=== PATIENT | female | born 1950 | race Asian ===

== ENCOUNTER 2019-02-19 09:03 | Outpatient (CLI) | payer MEDICARE, OTHER ==
[2019-02-19 12:31] LABS: BUN - BLOOD UREA NITROGEN 20 mg/dL (6-20); CALCIUM 9.6 mg/dL (8.5-10.3); CARBON DIOXIDE - CO2 24 mmol/L (21-32); CHLORIDE 108 mmol/L (101-111); CHOL/HDL RATIO 2.8 (<4.4); CHOLESTEROL 174 mg/dL; CREATININE 0.7 mg/dL (0.4-1.0); GFR - MDRD 83 (>89); GLUCOSE 120 mg/dL (70-100); HDL CHOLESTEROL 62 mg/dL; LDL CHOLESTEROL,CALCULATED 92 mg/dL; LDL/HDL RATIO 1.5 (<4.4); SODIUM 141 mmol/L (135-145); VLDL CHOLESTEROL 20 mg/dL
[2019-02-19 13:01] LABS: HB2 TOTAL 14.2 g/dL; HEMOGLOBIN A1C 0.56 g/dL; HEMOGLOBIN A1C % 5.8 % (4.6-6.2)
[2019-02-19 13:15] LABS: CREATININE,URINE 146.7 mg/dL; MICROALBUM/CREATININE RATIO,UR 1210.6 ug/mg (<30.0); MICROALBUMIN,URINE 177.6 mg/dL (0-300.0)
== END 2019-02-19 23:59 | disposition home or self-care (01) ==
LOC: LAB.N 09:03
PROVIDERS: ATTEND Family Medicine
DX: E11.9 Type 2 diabetes mellitus without complications (principal); E78.5 Hyperlipidemia, unspecified; I10 Essential (primary) hypertension
CPT/HCPCS: 36415; 80048; 80061; 82043; 82570; 83036; 83721; 84443

== ENCOUNTER 2019-03-02 12:25 | Outpatient (CLI) | payer MEDICARE, OTHER ==
--- NOTE | 2019-03-15 09:10 | Mammography Report ---
Reason: ROUTINE MAMMO Procedure Date: 03/02/2019 Accession Number: [id number] / [id number] Procedure: MGN - Screening Mammo Dig Bilat CPT Code: Final Report FULL RESULT: EXAM: Screening Mammo Dig Bilat DATE: 03/02/2019 12:53 PM CLINICAL HISTORY: Routine screening. No reported personal or family history of breast cancer. TECHNIQUE: (B) - Bilateral CC and MLO views were obtained. COMPARISON: None. If comparison films become available, an addendum to this report will be issued. PARENCHYMAL PATTERN: (D) - The breasts demonstrate heterogeneously dense fibroglandular parenchyma bilaterally. FINDINGS: Bilateral breasts: There are no suspicious masses, calcifications, or areas of distortion. IMPRESSION: Negative examination. BI-RADS category 1. RECOMMENDATION: (ANNUAL) - Recommend routine annual screening mammography. BI-RADS CATEGORY: (1) - Negative. STANDARD QUALIFYING STATEMENTS: 1. This examination was not reviewed with the aid of Computer-Aided Detection (CAD). 2. A negative or benign imaging report should not preclude biopsy if clinically suspicious findings are present. 3. Dense breasts may obscure an underlying neoplasm. 4. This examination was reviewed without the aid of 3D breast imaging (tomosynthesis).
== END 2019-03-02 12:26 | disposition home or self-care (01) ==
LOC: DI.N 12:25
PROVIDERS: ATTEND Family Medicine
DX: Z12.31 Encounter for screening mammogram for malignant neoplasm of breast (principal)
CPT/HCPCS: 77067

== ENCOUNTER 2019-05-04 08:29 | Outpatient (CLI) | payer MEDICARE, OTHER ==
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
[2019-05-04 09:44] VITALS: BP 150/80
== END 2019-05-04 08:30 | disposition home or self-care (01) ==
LOC: SC 08:29
PROVIDERS: ATTEND Nurse Practitioner Family
DX: G47.33 Obstructive sleep apnea (adult) (pediatric) (principal)
CPT/HCPCS: 99203; G0463; 99212

== ENCOUNTER 2019-05-30 19:21 | Outpatient (CLI) | payer MEDICARE, OTHER | END 2019-05-30 19:22 | disposition home or self-care (01) | LOC: SC 19:21 | PROVIDERS: ATTEND Internal Medicine Pulmonary Disease | DX: G47.33 Obstructive sleep apnea (adult) (pediatric) (principal) | CPT/HCPCS: 95810 ==

== ENCOUNTER 2019-06-29 13:47 | Outpatient (CLI) | payer MEDICARE, OTHER ==
[2019-06-29 16:19] VITALS: BP 140/70
--- NOTE | 2019-06-29 16:19 | SLEEP CARE CONSULTATION ---
Information from patient questionnaire entered by Danni Guzman. I have reviewed and concur with the information entered by Danni Guzman. This document represents the service I personally performed and the decisions made by me, Marcia Mccormack, RN, MSN, FLAMER SEALER. History of Present Illness Initial [place] Sleepiness Scale score: 17 Current [place] Sleepiness Scale score: 17 Additional HPI information: [facility] returns for follow up and results of the recently performed polysomnography. I explained the pathophysiology behind obstructive sleep apnea. We then spent quite a bit of time discussing different treatment options. For mild obstructive sleep apnea, surgery and oral appliance are alternatives to nasal CPAP therapy but in moderate or severe cases, nasal CPAP is the most effective and reliable treatment. I reviewed the impact of weight changes on sleep apnea and strongly recommended losing some weight. After some discussion, the patient opted to go with the nasal CPAP therapy. Nasal autoCPAP set at [id number] will be ordered with rationale explained. A manual titration study will be ordered if unable to find optimal pressure with office adjustments. I explained how CPAP machine works with sample devices RespirPlayerizes Dreamstation and ResMed [id number] and what to expect when using the machine. Using CPAP every night in order to get used to it was emphasized. Patient advised to put CPAP mask on before getting into bed so as not to fall asleep without CPAP. To assist acclimation to CPAP use, it could also be used for a short time during day while reading or watching TV. The patient was instructed to call the CPAP supplier to discuss any mechanical problem that may occur. If the mask given is uncomfortable or is difficult to keep on through the night even with adjustment, contact the CPAP supplier as many will replace with another mask style if notified before 30 days. If snoring or perceives is not getting enough air or too much air from the machine, notify this office. [facility] patient education PAP tips reviewed and given to patient. Patient prefers Res Med Air Sense CPAP. Patient counseled not drink alcohol less than 4 hours before bedtime as it can increase snoring and apnea. Patient does not drink alcohol. Patient was cautioned about risks of drowsy driving until sleepiness symptoms resolve. Patient denies drowsy driving. [facility] patient education on snoring and sleep apnea given and reviewed at last visit. Sleep Study - Results Polysomnography/Home Sleep Study results: The quality of the study is good. The patient had reduced sleep efficiency due to home lending officer awakening. Despite severe sleep fragmentation, the sleep architecture was normal.. Respiratory monitoring showed severe obstructive sleep apnea-hypopnea (AHI = 55.0) associated with frequent arousals, oxyhemoglobin desaturation and moderate hypoxia (roxy oxygen saturation of 75%). The patient only slept supine during this study (supine AHI = 55.7; non- supine = 0.00). Snore was loud in intensity. There was no significant periodic leg movement of sleep. Cardiac rhythm was normal sinus rhythm without significant arrhythmia. No abnormal behavior (parasomnia) observed during the night. Allergies and Home Medications Known drug allergies: No Home medication list reviewed: Yes (no change from last visit ) Review of Systems Review of systems same as previous: No (cataract surgery pending left eye ) Physical Exam Blood Pressure: 140/70 Cuff size: regular Heart Rate: 65 O2 Saturation: 98 Height: 4 ft 10.25 in Weight: 138 lb Body Mass Index: 28.5 BMI Classification: Overweight Impression and Plan 1. 1. Obstructive Sleep Apnea-Hypopnea Syndrome, severe, with lowest oxygen saturation of 75%. Obviously this is the cause of the patients symptoms of unrefreshed sleep, and excessive daytime sleepiness. Positive pressure therapy could benefit hypertension and diabetes. As mentioned above, the patient will be started on nasal autoCPAP therapy with pressure set at 5-15 cmH2O. A manual titration study will be completed if unable to find optimal treatment pressure with office adjustments. Compliance guidelines also reviewed. A copy of compliance guidelines will be given for reference at check out. At last sleep study in 2009 her apnea was worse supine. So advised to avoid sleeping supine until she receives her CPAP. I will place an urgent set up due to apnea severity and moderate hypoxia. * Nasal auto CPAP therapy, pressure at 5-15 cm H2O. * Attempt to lose weight. * Avoid alcohol consumption near bedtime. * Avoid supine sleep until using CPAP. * The patient is again cautioned about driving until sleepiness completely resolves. * Return one month after CPAP obtained. I will assess response to therapy and compliance at that time. Time Spent with Patient (minutes): 30 I spent 100% of this visit face to face with the patient with greater than 50% of this was spent time counseling the patient and coordination of care.
== END 2019-06-29 13:48 | disposition home or self-care (01) ==
LOC: SC 13:47
PROVIDERS: ATTEND Nurse Practitioner Family
DX: G47.33 Obstructive sleep apnea (adult) (pediatric) (principal); E66.3 Overweight; Z68.28 Body mass index [BMI] 28.0-28.9, adult
CPT/HCPCS: 99214; G0463; 99212

== ENCOUNTER 2019-07-08 06:09 | Day surgery (SDC) | payer MEDICARE, OTHER ==
[2019-07-08] MEDS ORDERED: MIDAZOLAM 2 MG/2 ML VIAL IVP ONE (06:10)
[2019-07-08] MEDS ORDERED: PROPARACAINE 0.5% OPHTH DROPS 15 ML ONE (06:27)
[2019-07-08] MEDS ORDERED: PHENYLEPHRINE 2.5% OPHTH 2 ML DROPS ONE (06:27)
[2019-07-08] MEDS ORDERED: KETOROLAC 0.45% OPHTH DROPS ONE (06:27)
[2019-07-08] MEDS ORDERED: CYCLOPENTOLATE 1% OPHTH DROPS 2 ML ONE (06:27)
[2019-07-08] MEDS ORDERED: LACTATED RINGERS 500 ML IV ONE (06:30)
[2019-07-08] MEDS ORDERED: timoloL maleate 0.5% OPHTH DROPS (10ML) ONE (06:35)
[2019-07-08] MEDS ORDERED: TRIAMCIN/MOXIFLOX OPHTHALMIC 0.6 ML VIAL IO ONE ×2 (06:35→07:34)
[2019-07-08] MEDS ORDERED: BRIMONIDINE 0.2% OPHTH DROPS 5 ML ONE (06:35)
[2019-07-08] MEDS ORDERED: VANCOMYCIN OPHTHALMI 8MG/0.8ML 8 MG/0.8 ML SYRINGE IO ONE ×2 (06:36→07:35)
[2019-07-08] MEDS ORDERED: BSS/LIDOCAINE/EPINEPHRINE 1 ML SYRINGE ONE (06:36)
[2019-07-08] MEDS ORDERED: PROPARACAINE 0.5% OPHTH DROPS 15 ML LEFTEYE ONE ×2 (06:40→07:21)
[2019-07-08] MEDS ORDERED: CYCLOPENTOLATE 1% OPHTH DROPS 2 ML LEFTEYE ONE (06:40)
[2019-07-08] MEDS ORDERED: PHENYLEPHRINE 2.5% OPHTH 2 ML DROPS LEFTEYE ONE (06:40)
[2019-07-08] MEDS ORDERED: KETOROLAC 0.45% OPHTH DROPS LEFTEYE ONE (06:40)
--- NOTE | 2019-07-08 07:06 | ANESTHESIA ---
Pre-Anesthesia VS, & Labs - Diagnosis left eye cataract - Procedure left eye cataract removal, lens placement Vital Signs: Temp Pulse Resp BP Pulse Ox 37.1 C 69 12 142/76 H 98 07/08/19 06:30 07/08/19 06:30 07/08/19 06:30 07/08/19 06:30 07/08/19 06:30 Height 4 ft 11 in Weight (kg) 62.1 kg Body Mass Index 28.5 - Is Patient ?: No - Lab Results Current Lab Results: Laboratory Tests 07/08/19 06:46: POC Whole Bld Glucose 117 H Home Medications and Allergies Home Medications: Ambulatory Orders Aspirin 81 mg PO DAILY 07/07/19 Cholecalciferol (Vitamin D3) [Vitamin D3] 2,000 mg PO DAILY 07/07/19 Hydrochlorothiazide 25 mg PO DAILY 07/07/19 Loratadine [Allergy Relief] 10 mg PO DAILY 07/07/19 Losartan [Cozaar] 100 mg PO DAILY 07/07/19 Metoprolol Succinate [Toprol Xl] 25 mg PO DAILY 07/07/19 Simvastatin 40 mg PO DAILY 07/07/19 metFORMIN [Glucophage] 500 mg PO DAILY 07/07/19 Aspirin 81 mg PO DAILY 07/07/19 Cholecalciferol (Vitamin D3) [Vitamin D3] 2,000 mg PO DAILY 07/07/19 Hydrochlorothiazide 25 mg PO DAILY 07/07/19 Loratadine [Allergy Relief] 10 mg PO DAILY 07/07/19 Losartan [Cozaar] 100 mg PO DAILY 07/07/19 Metoprolol Succinate [Toprol Xl] 25 mg PO DAILY 07/07/19 Simvastatin 40 mg PO DAILY 07/07/19 metFORMIN [Glucophage] 500 mg PO DAILY 07/07/19 Allergies/Adverse Reactions: Allergies Allergy/AdvReac Type Severity Reaction Status Date / Time iodine Allergy Rash Verified 07/08/19 06:49 Penicillins Allergy Unknown Verified 07/07/19 13:27 Anes History & Medical History - Anesthetic History Anesthesia Complications: reports: No previous complications Family history of Anesthesia Complications: Denies Family history of Malignant Hyperthermia: Denies - Medical History Cardiovascular: reports: Hypertension, High cholesterol Pulmonary: reports: Sleep apnea Gastrointestinal: reports: None Urinary: reports: None Neuro: reports: None Musculoskeletal: reports: None Endocrine/Autoimmune: reports: Type 2 diabetes Skin: reports: None Smoking Status: Never smoker Psychosocial: reports: No issues indicated - Surgical History Orthopedic: Carpal Tunnel surgery Exam General: Alert, Oriented x3, Cooperative, No acute distress Dental: WNL Mouth Openin Fingerbreadth Mallampati classification: II Thyromental Distance: less than 4 cm Respiratory: Lungs clear, Normal breath sounds, No respiratory distress, No accessory muscle use Cardiovascular: Regular rate, Normal S1, Normal S2, No murmurs Abdomen: Normal bowel sounds, Soft, No tenderness, No hepatospenomegaly, No masses Extremities: No clubbing, No cyanosis, No edema, Normal pulses, No tenderness/s welling Neurological: Normal gait, Normal speech, Strength at 5/5 X4 ext, Normal tone, Sensation intact, Cranial nerves 3-12 NL, Reflexes 2+ Mental/Cognitive Status: Alert/Oriented X3, Normal for patient Cognitive Status: Within normal limits Plan Anesthesia Type: MAC Consent for Procedure(s) Verified and Reviewed: Yes Code Status: Attempt Resuscitation ASA classification: 2-Mild systemic disease Is this case an emergency?: No
[2019-07-08] MEDS ORDERED: BRIMONIDINE 0.2% OPHTH DROPS 5 ML OPTH ONE (07:33)
[2019-07-08] MEDS ORDERED: EPINEPHrine 1 MG/ML AMP IVP ONE (07:33)
[2019-07-08] MEDS ORDERED: TIMOLOL 0.5% OPHTH DROPS OPTH ONE (07:34)
[2019-07-08] MEDS ORDERED: BSS/LIDOCAINE/EPINEPHRINE 1 ML SYRINGE IO ONE (07:34)
[2019-07-08] MEDS ORDERED: CHONDR SULF/HYALURONATE SYRINGE IO ONE (07:34)
[2019-07-08 07:58] VITALS: BP 122/65
--- NOTE | 2019-07-08 08:05 | OPERATIVE REPORT ---
DATE OF SERVICE: 07/08/2019 Physician: Sushant Rahman MD PREOPERATIVE DIAGNOSIS: Visually significant cataract, left eye. This was her first cataract surger y. POSTOPERATIVE DIAGNOSIS: Visually significant cataract, left eye. This was her first cataract surge ry. DESCRIPTION OF PROCEDURE: Phacoemulsification with posterior chamber intraocular lens implant, left eye. SURGEON: Sushant Rahman MD ANESTHESIA: Monitored anesthesia care. COMPLICATIONS: None. OPERATIVE INDICATIONS: This is a 69-year-old woman with progressive vision loss in the left eye due to 2+ nuclear sclerotic and 3+ cortical cataract. Best corrected visual acuity was 20/30, with glare to 20/400 in the left eye. Indications for surgery are difficulty seeing words on a computer screen , difficulty reading, difficulty seeing words closed caption or game scores on TV, difficulty driving at night because of headlights from other vehicles, and difficulty with glare or bright lights in an y situation. She was consented at length concerning risks and benefits of cataract surgery, after wh ich she expressed a desire to proceed with surgery. OPERATIVE PROCEDURE: Patient was taken to OR #3 and placed under monitored anesthesia care. Surgica l timeout was conducted confirming correct patient, correct procedure, and correct surgical site. Sh e was given topical anesthesia, then prepped and draped in the usual sterile fashion. The eye was en tered at the 6 and 3 o'clock positions. Intracameral Shugarcaine was injected into the anterior rolanda manny, followed by Viscoat. A continuous-tear curvilinear capsulorrhexis was performed. The nucleus w as hydrodissected and phacoemulsified. The cortex was evacuated using automated infusion and aspirat ion. Provisc was injected in the capsular bag, and a 21.5 diopter intraocular lens inserted in the b ag. Infusion and aspiration was used to evacuate the viscoelastic materials. The eye was inflated t o physiologic pressure using balanced salt solution and found to be watertight. Approximately 0.25 m L of a mixture of triamcinolone, moxifloxacin was injected transsclerally into the vitreous in the in ferotemporal quadrant. An additional 0.55 mL of a mixture of triamcinolone, moxifloxacin and vancomy claudia was injected subconjunctivally in the superior quadrant for infection and inflammation prophylaxi s. Wound integrity was checked with Weck-Florence sponges. Patient was taken from the operating room in good condition and given postoperative instructions. TD: 07/08/2019 07:49
== END 2019-07-08 06:10 | disposition home or self-care (01) ==
LOC: SDS 06:09
PROVIDERS: ATTEND Ophthalmology
PROC: 08RK3JZ Replacement of Left Lens with Synthetic Substitute, Percutaneous Approach (ICD-10-PCS; principal; 2019-07-08 07:30)
DX: E11.36 Type 2 diabetes mellitus with diabetic cataract (principal); H25.812 Combined forms of age-related cataract, left eye; I10 Essential (primary) hypertension; G47.33 Obstructive sleep apnea (adult) (pediatric)
CPT/HCPCS: 66984; A9270; J3490; V2632

== ENCOUNTER 2019-10-05 13:15 | Outpatient (CLI) | payer MEDICARE, OTHER | END 2019-10-05 13:16 | disposition home or self-care (01) | LOC: LAB 13:15 | PROVIDERS: ATTEND Ophthalmology | DX: Z01.812 Encounter for preprocedural laboratory examination (principal); H25.811 Combined forms of age-related cataract, right eye | CPT/HCPCS: 81599 ==

== ENCOUNTER 2019-12-16 11:15 | Outpatient (CLI) | payer MEDICARE, OTHER ==
[2019-12-16 18:54] LABS: CALCIUM 9.5 mg/dL (8.5-10.3); CREATININE 1.1 mg/dL (0.4-1.0)
[2019-12-16 19:01] LABS: CREATININE,URINE 139.9 mg/dL; MICROALBUM/CREATININE RATIO,UR 13.6 ug/mg (<30.0); MICROALBUMIN,URINE 1.9 mg/dL (0-300.0)
[2019-12-16 19:54] LABS: HB2 TOTAL 14.2 g/dL; HEMOGLOBIN A1C 0.6 g/dL
== END 2019-12-16 23:59 | disposition home or self-care (01) ==
LOC: LAB.WCP 11:15
PROVIDERS: ATTEND Family Medicine
DX: E11.9 Type 2 diabetes mellitus without complications (principal)
CPT/HCPCS: 36415; 80048; 82043; 82570; 83036

== ENCOUNTER 2020-01-13 15:27 | Outpatient (CLI) | payer MEDICARE, OTHER ==
[2020-01-13 16:29] VITALS: BP 122/60
--- NOTE | 2020-01-13 16:29 | SLEEP CARE CONSULTATION ---
Information from patient questionnaire entered by Luther Martinez. I have reviewed and concur with the information entered by Luther Martinez. This document represents the service I personally performed and the decisions made by me, Marcia Mccormack, RN, MSN, ROUTE SALES SPECIALIST. History of Present Illness Service Date and Time: 01/13/2020 1527 Previous diagnosis: Severe, Obstructive Sleep Apnea-Hypopnea Syndrome AHI: 55 Reason for follow up: one month (Followup-sleep diaries) Equipment type: CPAP Equipment obtained from: [employer] (getting supplies well) Mask style: Nasal Backup mask available: Yes (old mask ) Last cushion change: 2 months ago Prior sleep [facility]: Yes [facility] Type of Sleep Study: Polysomnography HPI additional information: For her insomnia, she completed sleep diary but did not write concerns as a release. She did not talk to her PCP about seeing a counselor when she saw him last. Sleep diary for one week completed Her wake up time time varies from 5am to 6:30am. Alarm is set for 7 am. Her bedime is 10:30 to 11:30 with most common time is 11pm and she is sleepy when she goes to bed. ( except for call to family. It generally takes her about 30 minutes to go to sleep. She does not wake in middle of night now that she turned off her phone after she left here last visit. Her family in [facility] were calling her in night due to time difference and were discussing their concerns keeping her up. Now she is waking refreshed in the morning and able to complete house work without fatigue. Now she is only falling asleep when in bed. Sleep Study - Results Prior sleep studies: Yes [facility] and [facility] CP[facility] Compliance Data - Data Reviewed with Patient Average duration of nightly device use: 4 h 47 min Compliance rate %: 70 Current pressure setting (cmH2O): 5-15 Average residual AHI: 2.8 Average large leak: 3.8 Subjective Patient concerns: denies: aerophagia, mask discomfort, air blowing in eyes, mask leak noise, condensation in mask/hose, nasal congestion, dry mouth, nose, throat, epistaxis, other Observed to snore while using device: No Current pressure setting perceived as: comfortable On therapy, patient: reports: sleeping better, awakening more refreshed, being more awake and alert during the day, more rested overall. denies: drowsiness while driving Initial [place] Sleepiness Scale score: 17 (in 2019)(18 in 2009) Current [place] Sleepiness Scale score: 12 Allergies and Home Medications Known drug allergies: Yes Home medication list reviewed: No (no changes ) Review of Systems Review of systems same as previous: Yes Physical Exam Blood Pressure: 122/60 Heart Rate: 63 O2 Saturation: 96 Height: 4 ft 11 in Weight: 140 lb 12.8 oz (stable) Body Mass Index: 28.4 BMI Classification: Overweight Impression and Plan 1. Obstructive Sleep Apnea-Hypopnea Syndrome, severe, with good treatment compliance and good apnea control. On CPAP therapy, the patient has better sleep quality and is more rested overall. No current concerns with CPAP use and is pleased with benefit of treatment. Patient's apnea severity and rationale for treatment to reduce apnea, improve sleep quality and reduce cardiovascular and cerebrovascular events was reviewed. I also reviewed the benefit of consistent device use of CPAP for hypertension, 2. Insomnia, improved from turning off phone at night and informing family in [facility] to call only during the day. This has reduced insomnia from concerns discussed on phone during her sleep time as now she can process information during normal wake hours. She has improved energy and restfulness but still not averaging enough sleep a night with 4.8 hours nightly average with mild fatigue noted on [place]. Thus she is advised to set alarm for 6am when she usually awakens and go to bed about 11 to obtain 7 hours of sleep. She is not to go to bed unless sleepy. She wanted for more sleep diaries to assist implementation of plan and given. She will follow up after return from [facility] [place]. * Continue[ auto] CPAP pressure at 5-15 cmH2O * Implement methods to obtain more sleep. * Notify me if snoring with mask or feeling that the pressure is too much or too little * Attempt to lose weight * Follow up with PCP for referral to diabetic classes for weight loss * Call this office if any problems using CPAP * Return for follow up after - return from trip to [place] in April , or sooner if concerns arise Visit Type: In Office Time Spent with Patient (minutes): 30 Provider Statement: I spent 100% of the Face to Face Visit with the patient with greater than 50% spent counseling the patient and coordination of care.
== END 2020-01-13 15:28 | disposition home or self-care (01) ==
LOC: SC 15:27
PROVIDERS: ATTEND Nurse Practitioner Family
DX: G47.33 Obstructive sleep apnea (adult) (pediatric) (principal); G47.00 Insomnia, unspecified; E66.3 Overweight; Z68.28 Body mass index [BMI] 28.0-28.9, adult
CPT/HCPCS: 99214; G0463; 99212